=== PATIENT | female | born 1950 ===

== ENCOUNTER 2017-05-17 17:15 | Emergency (ER) | payer MEDICARE, BC ==
[~2017-05-17] VITALS: Ht 165.1 cm; Wt 95.3 kg
--- NOTE | 2017-05-17 17:15 | NUR ---
Patient just finished her amoxicillin therapy for strep throat. Patient can not recall the exact dosages of her home medicines.
[2017-05-17] MEDS ORDERED: KETOROLAC TROMETHAMINE 15 MG INJ IV ONE (17:45)
[2017-05-17] MEDS ORDERED: GABAPENTIN PO (17:49)
[2017-05-17] MEDS ORDERED: ESTR1PAT46 TOP (17:49)
[2017-05-17] MEDS ORDERED: LEVO100T10 PO (17:49)
[2017-05-17] MEDS ORDERED: PROGESTERONE PO (17:50)
[2017-05-17] MEDS ORDERED: PANT40TA2 PO (17:50)
[2017-05-17] MEDS ORDERED: CELE200C PO (17:50)
[2017-05-17] MEDS ORDERED: KETOROLAC TROMETHAMINE 15 MG INJ IVP ONE (18:00)
[2017-05-17] MEDS ORDERED: DIAZEPAM 10 MG/2 ML DISP.SYRIN IV ONE (18:00)
[2017-05-17] MEDS ORDERED: KETOROLAC TROMETHAMINE 30 MG INJ ONE (18:10)
[2017-05-17] MEDS ORDERED: DIAZEPAM 10 MG/2 ML DISP.SYRIN ONE (18:10)
[2017-05-17 18:18] LABS: BASOPHILS # (AUTO) 0.1 K/uL (0.0-8.0); BASOPHILS % (AUTO) 1.2 % (0.0-2.0); EOSINOPHILS # (AUTO) 0.1 K/uL (0.0-0.7); EOSINOPHILS % (AUTO) 0.8 % (0.0-7.0); HEMATOCRIT 39.4 % (37-47); HEMOGLOBIN 13.1 G/DL (12.0-16.0); LYMPHOCYTES # (AUTO) 1.6 K/UL (0.8-4.8); LYMPHOCYTES % (AUTO) 15.6 % (20.5-51.5); MEAN CORPUSCULAR HEMOGLOBIN 27.8 UUG (27.0-31.0); MEAN CORPUSCULAR HGB CONC 33 g/dL (32.0-37.0); MEAN CORPUSCULAR VOLUME 83.6 FL (81.0-99.0); MONOCYTES # (AUTO) 0.5 K/UL (0.1-1.30); MONOCYTES % (AUTO) 4.6 % (0.0-11.0); NEUTROPHILS # (AUTO) 7.8 K/UL (1.8-8.9); NEUTROPHILS % (AUTO) 77.8 % (38.5-71.5); PLATELET COUNT (AUTO) 281 K/UL (150-450); RED BLOOD CELL COUNT(AUTO) 4.71 MIL/UL (4.2-5.4); WHITE BLOOD COUNT (AUTO) 10.1 K/UL (4.0-11.2)
[2017-05-17 18:23] LABS: BILIRUBIN,DIRECT 0.1 mg/dL (0.0-0.2); BILIRUBIN,TOTAL 0.4 mg/dL (0.2-1.0); CREATININE 0.7 mg/dL (0.6-1.3); POTASSIUM 3.8 mmol/L (3.5-5.1); TOTAL PROTEIN, SERUM 6.8 g/dL (6.4-8.2)
[2017-05-17 18:56] LABS: *BILIRUBIN,URIN NEGATIVE (NEGATIVE); *BLOOD, URINE Trace-intact (NEGATIVE); *COLOR,URINE YELLOW (YELLOW); *KETONES,URINE NEGATIVE (NEGATIVE); *PROTEIN,URINE NEGATIVE (NEGATIVE); *UROBILINOGEN,URINE 0.2 E.U./dl (NORMAL); LEUKOCYTE ESTERASE ,URINE 1+ (NEGATIVE); NITRITE, URINE NEGATIVE (NEGATIVE); PH,URINE 7.5 (5.0-8.0); UGLUCOSE NEGATIVE (NEGATIVE)
[2017-05-17 18:58] LABS: *CLARITY,URINE SLIGHTLY CLOUDY (CLEAR)
[2017-05-17] MEDS ORDERED: IOHEXOL 300MG/ML 100 ML INFUS..BTL ONE (19:00)
[2017-05-17] MEDS ORDERED: NORMAL SALINE FLUSH 10 ML DISP.SYRIN ONE (19:00)
[2017-05-17] MEDS ORDERED: IV NORMAL SALINE 0 ML IV ONE (19:00)
[2017-05-17 19:01] LABS: RBC,URINE 0-3 /HPF (0-3); SQUAMOUS EPITHELIAL CELL,UR FEW /HPF (NONE SEEN)
[2017-05-17 19:02] LABS: BACTERIA,URINE RARE /HPF (NONE SEEN)
--- NOTE | 2017-05-17 19:03 | NUR ---
Noemi nichols in ED - 05/17/17 at 1908 by ZOHRA Patient discharged to home in stable conditon. Written and verbal after care instructions given to patient. Patient verbalizes understanding of instructions.
[2017-05-17] MEDS ORDERED: ONDANSETRON 4 MG/2 ML VIAL IV ONE (19:15)
[2017-05-17] MEDS ORDERED: MORPHINE SULFATE 2 MG/1 ML DISP.SYRIN IV ONE (19:15)
[2017-05-17] MEDS ORDERED: IV NORMAL SALINE 1000 ML BAG IV ONE (19:15)
[2017-05-17] MEDS ORDERED: MORPHINE SULFATE 4 MG/1 ML DISP.SYRIN ONE ×2 (19:31→20:46)
[2017-05-17] MEDS ORDERED: ONDANSETRON 4 MG/2 ML VIAL ONE (19:31)
[2017-05-17] MEDS ORDERED: MORPHINE SULFATE 4 MG/1 ML DISP.SYRIN IV ONE (20:15)
--- NOTE | 2017-05-17 21:30 | NUR ---
IV removed. Catheter intact and site benign. Pressure and 4x4 gauze applied to site. No bleeding noted.
--- NOTE | 2017-05-17 21:36 | NUR ---
Patient discharged to home in stable conditon with family taking patient home. Written and verbal after care instructions given. Patient verbalizes understanding of instructions. Walked out ER with steady gait. No distress noted
[2017-05-17 21:38] VITALS: BP 156/77
== END 2017-05-17 21:39 | disposition home or self-care (01) ==
LOC: ER 17:18
DX: G89.29 Other chronic pain (principal); M54.6 Pain in thoracic spine; R10.9 Unspecified abdominal pain; K21.9 Gastro-esophageal reflux disease without esophagitis; Z96.651 Presence of right artificial knee joint
CPT/HCPCS: 36415; 71020; 74176; 80048; 80076; 81001; 83690; 84484; 85025; 93005; 96361; 96374; 96375; 96376; 99285; A4663; J1885; J2270 ×2; J2405; J3360; J7030; 70030-TC; J3490; J7050; Q9967